=== PATIENT | male | born 1975 | race Caucasian/White ===

== ENCOUNTER 2018-04-20 23:56 | Emergency (ER) | payer OTHER ==
--- NOTE | 2018-04-21 00:27 | EDPHY ---
H & P Stated Complaint: lip lac, hit in face with board while doing micki Time Seen by Provider: 04/21/18 00:25 HPI/ROS: HPI: This is a 42-year-old male who presents with Chief Complaint: Lip laceration, tooth injury Location: Right lower lip Quality: Laceration Duration: Prior to arrival Signs and Symptoms: +bleeding, no radiation, no numbness, no weakness, no tingling, no incontinence, no decreased range of motion, + swelling, + pain, no fever Timing: Acute Severity: Moderate Context: Patient reports that he was putting oak micki down when he accidentally had a piece of board smacked him up in the lip. He reports that his right side of his lower lip hit his right lower tooth. He believes that is tooth went through his lip when he tried to drink liquid it went through. He reports that there is some tooth loosening but denies any active bleeding. Tetanus is current. He drove himself to the emergency room. Denies LOC/head injury/neck pain/dizziness/nausea/vomiting/amnesia. Modifying Factors: None Comment: ROS: see HPI Constitutional: No fever, no chills, no weight loss Eyes: No blurred vision Respiratory: No shortness of breath, no cough Cardiovascular: No chest pain Gastrointestinal: No nausea, no vomiting no diarrhea Genitourinary: No dysuria Extremities: No myalgias Neurologic: No weakness, no numbness Skin: No rashes Hematologic: No bruising, no bleeding MEDICAL/SURGICAL/SOCIAL HISTORY: Medical history: Generally healthy. Does not take any regular medications. Surgical history: Denies Social history: Employed. Never smoked CONSTITUTIONAL: Extremely polite and cooperative middle-aged white male, awake and alert, no obvious distress HEENT: Atraumatic and normocephalic, Oropharynx clear, right lower lip shows 1 in through and through laceration; right lower tooth 16. Mild loosening-no cracker active bleeding noted. no exudate and moist pink mucosa. No malocclusion. Airway patent. No lymphadenopathy. NEUROLOGICAL: no focal neuro deficits. GCS 15. SKIN: Warm and dry, no erythema. no rash. Good capillary refill. Source: Patient Exam Limitations: No limitations - Personal History Current Tetanus/Diphtheria Vaccine: Yes - Medical/Surgical History Hx Asthma: No Hx Chronic Respiratory Disease: No Hx Diabetes: No Hx Cardiac Disease: No Hx Renal Disease: No Hx Cirrhosis: No Hx Alcoholism: No Hx HIV/AIDS: No Hx Splenectomy or Spleen Trauma: No Other PMH: denies - Social History Smoking Status: Never smoked Constitutional: Initial Vital Signs Temperature (C) 36.4 C 04/20/18 23:58 Heart Rate 58 L 04/20/18 23:58 Respiratory Rate 18 04/20/18 23:58 Blood Pressure 123/73 H 04/20/18 23:58 O2 Sat (%) 98 04/20/18 23:58 O2 Delivery Mode Room Air Allergies/Adverse Reactions: morphine Allergy (Verified 04/20/18 23:58) Sulfa (Sulfonamide Antibiotics) Allergy (Verified 04/20/18 23:58) Home Medications: Medication Instructions Recorded NK [No Known Home Meds] 04/20/18 Medical Decision Making Procedures: Procedure: Laceration repair. Verbal consent was obtained from the patient. The 2 cm, deep, complex laceration sparing the vermilion border on the right lower lip through and through the buccal mucosa was anesthetized in the usual fashion using 6 mL of 1 % lidocaine with epinephrine. The wound was irrigated, draped and explored to its base with a gloved finger. There were no deep structures involved. No tendon injury was identified. The wound was repaired with 2 layer closure; inside buccal mucosa was closed with #2; 5 0 chromic gut and the outside right lower lip was closed with #3, 5 0 Vicryl. Good hemostasis was achieved and patient tolerated procedure well. The procedure was performed by myself. ED Course/Re-evaluation: Tetanus up-to-date. Lacerations through and through; repaired with 2 layer closure-absorbable sutures used. Mild dental loosening with referral dentist for follow-up There is no indication for CT maxillofacial scan as I doubt mandible fracture. No signs of neurovascular compromise/tenting of skin/compartment syndrome/ extremities and joints examined above and below area of concern and are neurovascularly intact. This patient was seen under the supervision of my secondary supervising physician. I evaluated care for this patient independently. Discussed this patient with Dr. Morales. Differential Diagnosis: Differential diagnosis includes but is not limited to vermilion border injury, through and through lip laceration, dental trauma, mandible fracture Departure - Departure Disposition: Home, Routine, Self-Care Clinical Impression: Laceration of lip Qualifiers: Encounter type: initial encounter Qualified Code(s): S01.511A - Laceration without foreign body of lip, initial encounter Dental trauma Qualifiers: Encounter type: initial encounter Qualified Code(s): S09.93XA - Unspecified injury of face, initial encounter Condition: Good Instructions: Facial Laceration (ED) Additional Instructions: Follow up with your dentist within 3-5 days. Eat a soft diet. Swish and spit with dilute hydrogen peroxide after every meal. Take Tylenol 650 mg every 4 hr and/or ibuprofen 600 mg every 8 hr as needed for pain. This sutures used to close your lip laceration today are absorbable. They do not need to be removed and will slowly dissolve over time. Return to the ER immediately if you have progressive headaches, neurologic deficits, gait abnormality, visual disturbance, slurred speech, or any other symptom that concerns you. Referrals: [facility] [[employer]] - As per Instructions
[2018-04-21 01:02] VITALS: BP 124/80
== END 2018-04-21 01:02 | disposition home or self-care (01) ==
PROC: 0CQ1XZZ Repair Lower Lip, External Approach (ICD-10-PCS; principal; 2018-04-20)
DX: S01.511A Laceration without foreign body of lip, initial encounter (principal); W22.8XXA Striking against or struck by other objects, initial encounter; Y99.8 Other external cause status